=== PATIENT | female | born 1985 | race Hispanic/Latino ===

== ENCOUNTER 2020-02-01 21:40 | Emergency (ER) | payer SELFPAY ==
[2020-02-01 21:43] VITALS: BP 116/71; PULSE 75; RESP 16; TEMP 36.6; O2SAT 100
--- NOTE | 2020-02-01 22:15 | ED.EAR ---
HPI - Ear Problem General Chief complaint: Ear Stated complaint: right side face numbness, eye twitching Time Seen by Provider: 02/01/20 22:15 Source: patient and family Mode of arrival: ambulatory Limitations: no limitations History of Present Illness HPI Narrative: Patient is a 34-year-old female with a history of anemia who presents for evaluation of right ear pain that is causing some tingling on the right side of her face. Patient also reports she has had a sore throat and lymph node swollen on the right side of her neck. She denies difficulty with swallowing, but does report mild pain. She denies discharge from the ear. No recent swimming. No recent sick contacts. She denies fever, chest pain or shortness of breath. No vision changes or headache. Patient did take some ibuprofen for the ear pain which did improve her symptoms. Related Data Allergies Allergy/AdvReac Type Severity Reaction Status Date / Time Penicillins Allergy Mild Rash Verified 02/01/20 22:48 Review of Systems Review of Systems: Narrative: CONSTITUTIONAL: Denies fever, chills, or sweats. EYES: Denies visual changes, redness, or discharge. ENT: Denies rhinorrhea, congestion, reports sore throat and right ear pain CARDIOVASCULAR: Denies chest pain, palpitations, or edema. RESPIRATORY: Denies cough or dyspnea. GASTROINTESTINAL: Denies abdominal pain, nausea, vomiting, or diarrhea. GENITOURINARY: Denies dysuria or hematuria. SKIN: Denies rash or itching. MUSCULOSKELETAL: Denies back pain, joint pain, or myalgia. NEUROLOGIC: Denies headache, numbness, or weakness. Reports some tingling on the right side of her face. [facility] Past Medical History Medical History (Updated 02/01/20 @ 22:28 by Felicia Maldonado MD) Anemia Surgical History Surgical History (Updated 02/01/20 @ 22:24 by Felicia Maldonado MD) H/O section Social History Social History (Updated 02/01/20 @ 22:24 by Felicia Maldonado MD) Smoking status: Never smoker Substance use: never Living arrangements: with family Gender identity (if verbalized by the patient): Female Exam Narrative: Exam Narrative: GENERAL: Awake, alert, conversant HEAD: Normocephalic, atraumatic. EYES: PERRLA and EOMI. ENT: Nares clear, no rhinorrhea or epistaxis. Mucous membranes moist. Uvula is midline. Mild pharyngeal erythema. Tonsils are normal without exudate or petechiae. No trismus. Left tympanic membrane normal, intact light reflex, no bulging. Right tympanic membrane is bulging, serous fluid present, no perforation. Pain with retraction of the pinna. No mastoid tenderness or erythema. NECK: Supple. Mild cervical anterior lymphadenopathy on the right. CHEST: No respiratory distress, breathing even and non labored HEART: Regular rate, sinus rhythm ABDOMEN:Non distended, non tender EXTREMITIES: Normal range of motion. No edema. SKIN: Warm, dry, no rash. NEURO:No focal deficits. Alert and oriented x3. Finger to nose intact bilaterally. EOMs intact without nystagmus. No facial droop/asymmetry noted bilaterally. Grimace intact. Intact sensation in face. Hearing intact bilaterally. Shoulder shrug intact. Strength 5/5 bilateral upper extremities. Strength 5/5 bilateral lower extremities. Reflexes 2+ patellar. Heel to razo intact bilaterally. Ambulatorywith a narrow based steady gait. Course Vital Signs Vital signs: Vital Signs Temperature 36.6 C 02/01/20 21:43 Pulse Rate 75 02/01/20 21:43 Respiratory Rate 16 02/01/20 21:43 Blood Pressure 116/71 02/01/20 21:43 Pulse Oximetry 100 02/01/20 21:43 Temperature 36.6 C 02/01/20 21:43 Pulse Rate 75 02/01/20 21:43 Respiratory Rate 16 02/01/20 21:43 Blood Pressure 116/71 02/01/20 21:43 Pulse Oximetry 100 02/01/20 21:43 Medical Decision Making MDM Narrative Medical decision making narrative: Patient presented for evaluation of ear pain, swollen lymph nodes, sore throat, and some mild tingling and pain
[2020-02-01] MEDS: CEFDINIR 300 MG CAPSULE PO (22:48)
== END 2020-02-01 23:20 | disposition home or self-care (01) ==
LOC: ANHED 22:38
PROVIDERS: Emergency Provider Emergency Medicine
DX: H66.91 Otitis media, unspecified, right ear (principal); Z86.2 Personal history of diseases of the blood and blood-forming organs and certain disorders involving the immune mechanism
CPT/HCPCS: 99283; A9270

== ENCOUNTER 2020-10-27 22:47 | Emergency (ER) | payer MEDICAID, SELFPAY ==
--- NOTE | ~2020-10-27 | US_ITS ---
EXAMINATION: US OB <=14 wk fetus w TV DATE: 10/28/2020 01:37 INDICATION: Pelvic cramping during first trimester . TECHNIQUE: Real-time pelvic ultrasound utilizing both a transvaginal and transabdominal probe was pe rformed. The interpreting radiologist was not present for the study. COMPARISON: None. FINDINGS: The uterus measures 8.3 x 6.6 x 5.9 cm. There is an intrauterine gestational sac. A yolk sac is seen but no definite pole yet apparent likely due to early stage of . The mean sac diamete r measures 1.3 cm, which correlates with an estimated gestational age of 5 weeks and 6 days. 1.5 x 1. 3 x 0.9 cm hypoechoic subchorionic hematoma along the right side of the gestational sac. The right ovary measures 6.4 x 4.2 x 3.8 cm. And contains a 3.9 cm anechoic cyst/follicle with single thin internal septation. The left ovary measures 2.8 x 1.4 x 1.6 cm. Vascular flow identified in bot h ovaries on color Doppler. There is no free fluid in the pelvis. IMPRESSION: 1. Intrauterine gestational sac with single yolk sac but no pole yet apparent likely due to ear ly stage of . 2. Gestational age by ultrasound of 5 weeks 6 day(s) +/- 4 day(s) with ultrasound estimated date of delivery (KERRIE) of 06/24/2021. 2. Small subchorionic hematoma. Reviewed, dictated and finalized at location A. IMPRESSION: 1. Intrauterine gestational sac with single yolk sac but no pole yet appa rent likely due to early stage of . 2. Gestational age by ultrasound of 5 weeks 6 day(s) +/- 4 day(s) with ultraso und estimated date of delivery (KERRIE) of 06/24/2021. 2. Small subchorionic hematoma.
[2020-10-27 22:51] VITALS: BP 115/86; PULSE 73; RESP 18; TEMP 36.3; O2SAT 100
[2020-10-27 23:15] LABS: Basophils Absolute Auto 0.1 K/mm3 (0.0-0.1); Basophils Percent Auto 0.5 % (0.2-1.2); Eosinophils Absolute Auto 0.2 K/mm3 (0-0.3); Eosinophils Percent Auto 2.3 % (0-4.4); Hematocrit 36.9 % (37.0-47.0); Hemoglobin 12.4 g/dL (12.0-15.0); Immature Granulocyte Absolute 0.02 K/mm3 (0.00-0.031); Immature Granulocyte Percent A 0.2 % (0-0.5); Lymphocytes Absolute Auto 2.68 K/mm3 (0.9-3.2); Lymphocytes Percent Auto 28.9 % (18.3-44.2); Mean Corpuscular HGB Conc 33.6 g/dl (32-36); Mean Corpuscular Hemoglobin 30.8 pg (26-34); Mean Corpuscular Volume 91.8 fl (80-100); Mean Platelet Volume 9.4 fl (7.4-10.4); Monocytes Absolute Auto 0.6 K/mm3 (0.1-0.6); Monocytes Percent Auto 6.8 % (2.6-8.5); Neutrophils Absolute Auto 5.7 K/mm3 (1.3-6.7); Neutrophils Percent Auto 61.3 % (45.5-73.1); Platelet Count Result 310 k/mm3 (150-375); Red Blood Count 4.02 M/mm3 (4.2-5.4); Red Cell Distribution Width 12.7 % (11.5-14.5); White Blood Count 9.3 K/mm3 (4.5-10.0)
[2020-10-27 23:26] LABS: Alanine Aminotransferase 10 U/L (4-35); Albumin Level 4.3 g/dL (3.5-5.1); Alkaline Phosphatase 55 U/L (38-126); Anion Gap 4 mmol/L (8-16); Aspartate Amino Transferase 18 U/L (14-36); Bilirubin,Total 0.3 mg/dL (0.2-1.3); Blood Urea Nitrogen 8 mg/dL (7-17); Calcium 9.6 mg/dL (8.4-10.2); Carbon Dioxide 29 mmol/L (22-30); Chloride 104 mmol/L (98-107); Estimated CRCL calculation 83 ml/min; Estimated Glomerular Filt Rate > 60; Glucose 94 mg/dL (65-105); Lipase 89 U/L (23-300); Potassium 3.8 mmol/L (3.4-5.0); Sodium 137 mmol/L (137-145)
[2020-10-28 00:11] VITALS: BP 115/76; PULSE 76; RESP 14; O2SAT 100
[2020-10-28 00:36] LABS: Add Urine Microscopic? YES; Amorphous Sediment Urine Few; Appearance Urine Cloudy (Clear); Bilirubin Urine Negative (Negative); Blood Urine Negative (Negative); Color Urine Yellow (Yellow); Glucose Urine UA Negative (Negative); Ketones Urine Negative (Negative); Leukocyte Esterase Ur Trace LEU/UL (Negative); Mucus Urine Rare /lpf; Nitrate Urine Negative (Negative); Protein Urine 1+ mg/dL (Negative); RBC Urine 0-2 /hpf (0-2); Squamous Epithelial Cell Urine Many /hpf (Few); Urobilinogen Urine Negative mg/dL (<2.0)
--- NOTE | 2020-10-28 00:39 | ED.ABDPAIN ---
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 Reports the pain is in her lower abdomen/pelvis. She took a test today and it was positive. She has not had any care yet this . She does not have an ELECTRICIAN TELEPHONE. Denies fever, nausea, vomiting, vaginal bleeding, or dysuria. Related Data Allergies Allergy/AdvReac Type Severity Reaction Status Date / Time Penicillins Allergy Mild Rash Verified 02/01/20 22:48 Review of Systems Review of Systems: Narrative: CONSTITUTIONAL: Denies fever GASTROINTESTINAL: Reports abdominal pain. Denies nausea, vomiting GENITOURINARY: Denies dysuria All systems reviewed & are unremarkable except as noted in HPI and below PMFSH Past Medical History Medical History (Updated 10/28/20 @ 02:31 by Mora Singh PA-C) Anemia Surgical History Surgical History (Updated 02/01/20 @ 22:24 by Felicia Maldonado MD) H/O section Social History Social History (Updated 02/01/20 @ 22:24 by Felicia Maldonado MD) Smoking status: Never smoker Substance use: never Gender identity (if verbalized by the patient): Female Exam Narrative: Exam Narrative: GENERAL: Well-appearing, well-nourished, and in no acute distress. HEAD: Normocephalic, atraumatic. EYES: EOMI. CHEST: Clear to auscultation. No respiratory distress. No wheezes rales or rhonchi HEART: Regular rate and rhythm. No murmur heard. Normal peripheral pulses. ABDOMEN: Soft, nontender, nondistended, normal active bowel sounds. No CVA tenderness EXTREMITIES: Normal range of motion. No edema. SKIN: Warm, dry, no rash. NEURO: No focal deficits. Alert and oriented x3. PSYCH: Normal mood and affect Course Vital Signs Vital signs: Vital Signs Temperature 97.3 F L 10/27/20 22:51 Pulse Rate 73 10/27/20 22:51 Respiratory Rate 18 10/27/20 22:51 Blood Pressure 115/86 10/27/20 22:51 Pulse Oximetry 100 10/27/20 22:51 Temperature 97.3 F L 10/27/20 22:51 Pulse Rate 76 10/28/20 00:11 Respiratory Rate 14 10/28/20 00:11 Blood Pressure 115/76 10/28/20 00:11 Pulse Oximetry 100 10/28/20 00:11 MDM - Abdominal Pain MDM Narrative Medical decision making narrative: Patient presents the emergency department for abdominal discomfort with positive test today. She is afebrile and nontoxic-appearing. Vitals are stable. CBC and metabolic panel without concerning findings. Lipase is normal. UA without evidence of infection. Quantitative beta-hCG is 19,779. Obstetrics ultrasound shows a IUP with a yolk sac. pole not yet identified. Shows a septated/complex ovarian cyst without evidence of torsion. Patient was updated on case findings. Resting comfortably in bed. She denies any vaginal bleeding. She is stable and felt appropriate for further outpatient evaluation. Will be given OB for follow-up. She was given warnings to return to the ER Lab Data Attestation: I reviewed the patient's lab results. Result diagrams: 10/27/20 23:03 10/27/20 23:03 Labs: Lab Results 10/27/20 10/27/20 10/27/20 Range/Units 23:02 23:03 23:03 WBC 9.3 (4.5-10.0) K/mm3 RBC 4.02 L (4.2-5.4) M/mm3 Hgb 12.4 (12.0-15.0) g/dL Hct 36.9 L (37.0-47.0) % MCV 91.8 (80-100) fl MCH 30.8 (26-34) pg MCHC 33.6 (32-36) g/dl RDW 12.7 (11.5-14.5) % Plt Count 310 (150-375) k/mm3 MPV 9.4 (7.4-10.4) fl Immature Gran % (Auto) 0.2 (0-0.5) % Neut % (Auto) 61.3 (45.5-73.1) % Lymph % (Auto) 28.9 (18.3-44.2) % [place] % (Auto) 6.8 (2.6-8.5) % Eos % (Auto) 2.3 (0-4.4) % Baso % (Auto) 0.5 (0.2-1.
[2020-10-28 02:47] VITALS: BP 107/70; PULSE 69; RESP 14; O2SAT 100
== END 2020-10-28 02:47 | disposition home or self-care (01) ==
PROVIDERS: Physician Assistant; Emergency Provider Emergency Medicine
DX: R10.9 Unspecified abdominal pain (principal); O26.899 Other specified pregnancy related conditions, unspecified trimester
CPT/HCPCS: 36415; 76801; 76817; 80053; 81001; 81025; 83690; 84702; 85025; 99284

== ENCOUNTER 2020-11-30 15:53 | Outpatient (CLI) | payer MEDICAID, SELFPAY ==
--- NOTE | ~2020-11-30 | US_ITS ---
EXAMINATION: US OB <= 14 weeks fetus EXAM DATE: 11/30/2020 16:21 INDICATION: Encounter for screening of normal , dating. 1st trimester. TECHNIQUE: Pelvic obstetrical transabdominal sonogram was performed by a technologist. There are mu ltiple grayscale and Doppler images available for interpretation. Comparison is made to prior examina tion from 10/28/2020. FINDINGS: Uterus measures 9.3 x 8.1 x 7.9 cm. There is intrauterine gestation sac. pole with heart rate confirmed at 175 beats per minute. The 4 cm crown-rump length corresponds to estimated ge stational age by ultrasound of 10 weeks 6 days, estimated date of confinement 06/22/2021. Yolk sac is identified. There is no sonographic evidence of subchorionic hemorrhage. There is a 4 cm right ov junior cyst probably the corpus luteal cyst. Left ovary not identified. IMPRESSION: Live intrauterine gestation, age by ultrasound 10 weeks 6 days. Reviewed, dictated and finalized at location G.
== END 2020-11-30 15:54 | disposition home or self-care (01) ==
PROVIDERS: PCP Obstetrics & Gynecology; Visit Provider Obstetrics & Gynecology
DX: Z34.91 Encounter for supervision of normal pregnancy, unspecified, first trimester (principal); Z3A.10 10 weeks gestation of pregnancy
CPT/HCPCS: 76801

== ENCOUNTER 2021-01-11 19:56 | Emergency (ER) | payer OTHER, SELFPAY ==
--- NOTE | 2021-01-11 20:13 | ECG_ITS ---
Measurements Intervals [place] Rate: 71 P: 55 OR: 130 QRS: 61 QRSD: 82 T: 59 QT: 390 QTc: 425 Interpretive Statements SINUS RHYTHM NORMAL ECG Electronically Signed On 01-12-2021 8:56:28 CDT by Johnathon Barton D.O.
[2021-01-11 20:25] VITALS: BP 114/63; PULSE 72; RESP 20; TEMP 36.9; O2SAT 100
[2021-01-11 20:31] LABS: Basophils Absolute Auto 0.1 K/mm3 (0.0-0.1); Basophils Percent Auto 0.5 % (0.2-1.2); Eosinophils Absolute Auto 0.2 K/mm3 (0-0.3); Eosinophils Percent Auto 1.7 % (0-4.4); Hematocrit 33.1 % (37.0-47.0); Hemoglobin 11.4 g/dL (12.0-15.0); Immature Granulocyte Absolute 0.04 K/mm3 (0.00-0.031); Immature Granulocyte Percent A 0.3 % (0-0.5); Lymphocytes Percent Auto 26.7 % (18.3-44.2); Mean Corpuscular HGB Conc 34.4 g/dl (32-36); Mean Corpuscular Hemoglobin 31.4 pg (26-34); Mean Corpuscular Volume 91.2 fl (80-100); Mean Platelet Volume 9.7 fl (7.4-10.4); Monocytes Absolute Auto 0.6 K/mm3 (0.1-0.6); Monocytes Percent Auto 4.9 % (2.6-8.5); Neutrophils Absolute Auto 8.2 K/mm3 (1.3-6.7); Neutrophils Percent Auto 65.9 % (45.5-73.1); Platelet Count Result 312 k/mm3 (150-375); Red Blood Count 3.63 M/mm3 (4.2-5.4); Red Cell Distribution Width 13.4 % (11.5-14.5); White Blood Count 12.4 K/mm3 (4.5-10.0)
[2021-01-11 20:58] LABS: Anion Gap 6 mmol/L (8-16); Blood Urea Nitrogen 5 mg/dL (7-17); Calcium 8.9 mg/dL (8.4-10.2); Carbon Dioxide 22 mmol/L (22-30); Chloride 107 mmol/L (98-107); Estimated CRCL calculation 96 ml/min; Estimated Glomerular Filt Rate > 60; Glucose 78 mg/dL (65-110); Potassium 3.8 mmol/L (3.4-5.0); Sodium 135 mmol/L (137-145)
--- NOTE | 2021-01-12 00:38 | ED.DIZZY ---
HPI - Dizziness General Chief Complaint: Dizziness Stated Complaint: chest pain Time Seen by Provider: 01/12/21 00:25 History of Present Illness HPI Narrative: female at approximately 4 months gestation presents to the ED for dizziness. She has been intermittenlty light headed for the past few days. Worse upon standing. This is associated with with moderate headache and occasional chest discomfort. No abdominal pain, vomiting, vaginal bleeding, discharge, dysuria. Related Data Allergies Allergy/AdvReac Type Severity Reaction Status Date / Time Penicillins Allergy Mild Rash Verified 01/12/21 01:19 Review of Systems Review of Systems: All systems reviewed & are unremarkable except as noted in HPI and below PMFSH Past Medical History Medical History (Updated 01/13/21 @ 00:00 by Bryanna Mayes) Anemia Surgical History Surgical History (Updated 02/01/20 @ 22:24 by Felicia Maldonado MD) H/O section Social History Social History (Updated 02/01/20 @ 22:24 by Felicia Maldonado MD) Smoking status: Never smoker Substance use: never Gender identity (if verbalized by the patient): Female Exam Const: General: healthy appearing, no acute distress and alert Orientation/consciousness: patient oriented x3 HENMT: Head: normal to inspection Ears: TM's normal bilaterally Face and sinus: normal facial exam Eyes: Pupils: Equal, round and reactive pupils present EOM: EOMs intact bilaterally Neck: Neck: normal visual inspection Resp: Effort & Inspection: normal respiratory effort Auscultation: clear to auscultation bilaterally, no rales, no rhonchi and no wheezes Cardio: Jugular venous distension: no JVD Rate: regular rate Rhythm: regular rhythm Heart sounds: no murmurs GI: Inspection: non-distended GI Palp: Yes Soft to palpation and No Tenderness to palpation present (GI) Skin: General skin exam: normal color Neuro: General: patient oriented x3 and moves all extremities Speech: normal speech Extrem: General: no edema Psych: Appearance: well kempt Affect: normal affect Course Vital Signs Vital signs: Vital Signs Temperature 36.9 C 01/11/21 20:25 Pulse Rate 72 01/11/21 20:25 Respiratory Rate 20 01/11/21 20:25 Blood Pressure 114/63 01/11/21 20:25 Pulse Oximetry 100 01/11/21 20:25 Temperature 36.2 C L 01/12/21 00:51 Pulse Rate 85 01/12/21 02:58 Respiratory Rate 12 01/12/21 02:58 Blood Pressure 101/67 01/12/21 02:58 Pulse Oximetry 100 01/12/21 02:58 MDM - Dizziness Differential Diagnosis Differential diagnosis: Likely benign paroxysmal positional vertigo, orthostatic hypotension and other (tension VAL[place]INO, migraine, preeclampsia) Medical Records Attestation: I reviewed the patient's medical records. Lab Data Attestation: I reviewed the patient's lab results. Result diagrams: 01/11/21 20:21 01/11/21 20:21 Labs: Lab Results 01/11/21 01/11/21 Range/Units 20:21 20:21 WBC 12.4 H (4.5-10.0) K/mm3 RBC 3.63 L (4.2-5.4) M/mm3 Hgb 11.4 L (12.0-15.0) g/dL Hct 33.1 L (37.0-47.0) % MCV 91.2 (80-100) fl MCH 31.4 (26-34) pg MCHC 34.4 (32-36) g/dl RDW 13.4 (11.5-14.5) % Plt Count 312 (150-375) k/mm3 MPV 9.7 (7.4-10.4) fl Immature Gran % (Auto) 0.3 (0-0.5) % Neut % (Auto) 65.9 (45.5-73.1) % Lymph % (Auto) 26.7 (18.3-44.2) % [place] % (Auto) 4.9 (2.6-8.5) % Eos % (Auto) 1.7 (0-4.4) % Baso % (Auto) 0.5 (0.2-1.2) % Lymph # (Auto) 3.30 H (0.9-3.2) K/mm3 [place] # (Auto) 0.6 (0.1-0.6) K/mm3 Eos # (Auto) 0.2 (0-0.3) K/mm3 Baso # (Auto) 0.1 (0.0-0.1) K/mm3 Abs Immat Gran (auto) 0.04 H (0.00-0.031) K/mm3 Absolute Neuts (auto) 8.2 H (1.3-6.7) K/mm3 Absolute Nucleated RBC 0.0 (0.0-0.012) K/mm3 Nucleated RBC % 0.0 (0.0-0.2) % Sodium 135 L (137-145) mmol/L Potassium 3.8 (3.4-5.0) mmol/L Chloride 107 (98-107) mmol/L Carbon D
[2021-01-12 00:51] VITALS: BP 100/66; PULSE 65; RESP 9; TEMP 36.2; O2SAT 100
[2021-01-12] MEDS: SODIUM CHLORIDE 0.9% IV 1,000 ML 999 ML IV CONT (01:30)
[2021-01-12] MEDS: METOCLOPRAMIDE HCL INJ 10 MG/2 ML VIAL IV PUSH (01:31)
[2021-01-12] MEDS: diphenhydrAMINE HCl INJ 50 MG/ML VIAL 25 MG IV PUSH (01:31)
[2021-01-12 01:36] VITALS: BP 99/67; PULSE 67; RESP 15; O2SAT 100
[2021-01-12 02:35] VITALS: BP 101/67; PULSE 62; RESP 14; O2SAT 100
[2021-01-12 02:58] VITALS: BP 101/67; PULSE 85; RESP 12; O2SAT 100
== END 2021-01-12 03:01 | disposition home or self-care (01) ==
PROVIDERS: Emergency Medicine; Emergency Provider Emergency Medicine; PCP Obstetrics & Gynecology
DX: O26.899 Other specified pregnancy related conditions, unspecified trimester (principal); R42 Dizziness and giddiness; O99.019 Anemia complicating pregnancy, unspecified trimester; Z3A.00 Weeks of gestation of pregnancy not specified; D64.9 Anemia, unspecified
CPT/HCPCS: 36415; 80048; 85025; 93005; 96361; 96374; 96375; 99284; J1200; J2765; J7030

== ENCOUNTER 2021-02-03 14:14 | Outpatient (CLI) | payer OTHER, SELFPAY ==
--- NOTE | ~2021-02-03 | US_ITS ---
US OB /maternal detail DATE: 02/03/2021 15:19 INDICATION: anatomy screen TECHNIQUE: Real-time imaging and Doppler analysis COMPARISON: 12/01/2019 obstetrical ultrasound FINDINGS: Live anglin intrauterine gestation, fetus in longitudinal lie, vertex presentation. Posterior placenta, lower margin of placenta 7.9 cm above the internal os. Subjectively normal amount of amniotic fluid. No cerebral ventriculomegaly. cerebellum, cisterna magna and nuchal fold appear normal. T he spine appears normal on transverse and longitudinal imaging. The diaphragm is intact. 4 chamber heart with normal outflow tracts. kidneys are unremarkable, without hydronephro sis. Fluid is demonstrated in the stomach and urinary bladder. female external essie shoshana. Three-vessel umbilical cord with normal insertion at abdominal wall. extremities are unremarkable. Biparietal diameter 4.53 cm; 19 weeks 5 days Head circumference 16.95 cm; 19 weeks 4 days Abdominal circumference 14.50 cm; 19 weeks 6 days Femur length 3.13 cm; 19 weeks 5 days Composite age by Hadlock bilateral is 19 weeks 5 days +/- 1 week 3 days; KERRIE: 06/25/2021 Estimated weight is 311.1 +/- 46.7 g. Estimated weight-GP: 39.5% Head circumference/abdominal circumference: 1.17, within normal range of 1.08-1.26 Femur length/head circumference: 18.50, within normal range of 16.60-19.37. IMPRESSION: Composite age by Hadlock bilateral is 19 weeks 5 days +/- 1 week 3 days; KERRIE: 06/25/2021 Normal anatomy screen Reviewed, dictated and finalized at Location [facility]. Reviewed, dictated and finalized at location A.
== END 2021-02-03 14:15 | disposition home or self-care (01) ==
PROVIDERS: PCP Obstetrics & Gynecology; Visit Provider Obstetrics & Gynecology
DX: Z36.9 Encounter for antenatal screening, unspecified (principal); Z3A.19 19 weeks gestation of pregnancy
CPT/HCPCS: 76805

== ENCOUNTER 2021-03-10 10:21 | Outpatient (CLI) | payer OTHER, SELFPAY ==
--- NOTE | ~2021-03-10 | US_ITS ---
EXAMINATION: US OB follow up DATE: 03/10/2021 11:01 INDICATION: Routine care TECHNIQUE: Real-time ultrasound of the pelvis was performed. The interpreting radiologist was not pre sent for the study. COMPARISON: None. FINDINGS: There is a single living fetus in vertex presentation. The placenta is right posterior. heart rate is 132 beats per minute (bpm). The amniotic fluid index is 20.1 cm, which is normal (5th%-95%: 9.7-22.1 cm at 25 weeks estimated gestational age). The following biometric data were obtained: BPD: 6.0 cm -> 24 weeks 4 days Head circumference: 22.6 cm -> 24 weeks 4 days Abdominal circumference: 20.6 cm -> 25 weeks 1 days Femur length: 4.5 cm -> 24 weeks 6 days These measurements are concordant. Head circumference to abdominal circumference ratio: 1.10 (normal range 1.04-1.22). Estimated weight: 754 g (+/-) 113 g or 1 lbs. 11 oz. (+/-) 4 oz. IMPRESSION: 1. Single living fetus in vertex presentation with heart rate of 132 bpm. 2. Normal amniotic fluid index of 20.1 cm. 3. Estimated weight is 45th percentile by Hadlock criteria when 06/24/2021 is used as the estimat ed date of delivery (KERRIE). Please correlate with clinical information or earlier ultrasounds for most accurate KERRIE. Reviewed, dictated and finalized at location A. IMPRESSION: 1. Single living fetus in vertex presentation with heart rate of 132 bpm. 2. Normal amniotic fluid index of 20.1 cm. 3. Estimated weight is 45th percentile by Hadlock criteria when 06/24/2021 is used as the estimated date of delivery (KERRIE). Please correlate with clinical information or earlier ultrasounds for most accurate KERRIE.
== END 2021-03-10 10:22 | disposition home or self-care (01) ==
PROVIDERS: PCP Obstetrics & Gynecology; Visit Provider Obstetrics & Gynecology
DX: Z34.90 Encounter for supervision of normal pregnancy, unspecified, unspecified trimester (principal); Z3A.00 Weeks of gestation of pregnancy not specified
CPT/HCPCS: 76816

== ENCOUNTER 2021-04-12 09:32 | Outpatient (CLI) | payer OTHER, SELFPAY ==
--- NOTE | ~2021-04-12 | US_ITS ---
EXAMINATION: US OB follow up DATE: 04/12/2021 09:57 INDICATION: growth assessment during second trimester TECHNIQUE: Real-time ultrasound of the pelvis was performed. The interpreting radiologist was not pre sent for the study. COMPARISON: 03/10/2021 FINDINGS: There is a single living fetus in vertex presentation. The placenta is posterior/fundal. Fe ruel cardiac activity and movement are noted. heart rate is 137 beats per minute (bpm). Th e amniotic fluid index is 13.4 cm which is normal. The following biometric data were obtained: Biparietal diameter (BPD): 7.2 cm; head circumference (HC): 27.8 cm; abdominal circumference (AC): 27 .7 cm; femur length (FL): 5.7 cm. These measurements are concordant. Estimated weight is 1678 g +/- 251 g, which correlates with the 85th percentile when 06/24/2021 i s used as estimated date of delivery. As single measurements, these parameters are each equal to the following estimated gestational ages w ith ranges of +/- 2 standard deviations: BPD: 29 weeks 1 days ( 27 weeks 0 days - 31 weeks 2 days). HC: 30 weeks 3 days ( 27 weeks 4 days - 33 weeks 3 days). AC: 31 weeks 6 days ( 28 weeks 6 days - 34 weeks 5 days). FL: 30 weeks 2 days ( 28 weeks 1 days - 32 weeks 3 days). estimated gestational age based solely on measurements from this exam is 30 weeks 3 days +/- 2 weeks 1 days. IMPRESSION: 1. Single living fetus in vertex presentation. 2. Estimated weight is 1678 g +/- 251 g, which correlates with the 85th percentile when 2 is used as estimated date of delivery. Reviewed, dictated and finalized at location A. IMPRESSION: 1. Single living fetus in vertex presentation. 2. Estimated weight is 1678 g +/- 251 g, which correlates with the 85th p ercentile when 06/24/2021 is used as estimated date of delivery.
== END 2021-04-12 09:33 | disposition home or self-care (01) ==
LOC: ANHIMG 09:33
PROVIDERS: PCP Obstetrics & Gynecology; Visit Provider Obstetrics & Gynecology
DX: Z34.83 Encounter for supervision of other normal pregnancy, third trimester (principal); Z3A.30 30 weeks gestation of pregnancy
CPT/HCPCS: 76816

== ENCOUNTER 2022-09-26 18:34 | Emergency (ER) | payer OTHER, SELFPAY ==
[2022-09-26 18:42] VITALS: BP 104/68; PULSE 73; RESP 16; TEMP 37.3; O2SAT 99
--- NOTE | 2022-09-26 19:18 | ED.GENADULT ---
HPI - General Adult General Chief complaint: Eye Problems Stated complaint: Both Eyes Irritation Source: patient Mode of arrival: ambulatory Limitations: language barrier ( utilized financial services counselor services) History of Present Illness HPI narrative: Patient presents for evaluation of redness and itching to bilateral eyes for the last 4 days. She reports tearing from both eyes. She had some blurred vision as result of tearing last night. Denies visual disturbance otherwise. Reports some irritation in her nose and throat, But denies sore throat per se. No fever, chills, nausea, vomiting, cough, SOB. She does not smoke. She does not wear glasses or contacts. Related Data Allergies Allergy/AdvReac Type Severity Reaction Status Date / Time Penicillins Allergy Mild Rash Verified 09/26/22 18:55 Review of Systems Review of Systems: CONSTITUTIONAL: Denies fever, chills, or sweats. EYES: Reports redness and itching to both eyes. Reports tearing and blurred vision yesterday which has improved ENT: Denies rhinorrhea, congestion, sore throat, or otalgia. CARDIOVASCULAR: Denies chest pain, palpitations, or edema. RESPIRATORY: Denies cough or dyspnea. GASTROINTESTINAL: Denies abdominal pain, nausea, vomiting, or diarrhea. GENITOURINARY: Denies dysuria or hematuria. SKIN: Denies rash or itching. MUSCULOSKELETAL: Denies back pain, joint pain, or myalgia. NEUROLOGIC: Denies headache, numbness, dizziness, or weakness. PSYCHIATRIC: Denies anxiety or depression. [facility] Past Medical History Medical History Anemia Surgical History Surgical History H/O section Family History Family History Mother Family history non-contributory Social History Social History Smoking status: Never smoker Substance use: never Living arrangements: with family Gender identity (if verbalized by the patient): Female Sexual Orientation (if Verbalized by the Patient): Straight or Heterosexual Spiritual care concerns: No Exam Narrative: GENERAL: Well-appearing, well-nourished, and in no acute distress. HEAD: Normocephalic, atraumatic. EYES: Bilateral conjunctival injection with tearing noted. PERRLA and EOMI. ENT: Nares clear, no rhinorrhea or epistaxis. Mucous membranes moist. Oropharynx without tonsillar hypertrophy exudate or other lesions. Bilateral TMs pearly [place] nonbulging NECK: Supple. No adenopathy or masses. No carotid bruits or JVD CHEST: Clear to auscultation. No respiratory distress. No wheezes rales or rhonchi HEART: Regular rate and rhythm. No murmur heard. Normal peripheral pulses. ABDOMEN: Soft, nontender, nondistended, normal active bowel sounds. EXTREMITIES: Normal range of motion. No edema. SKIN: Warm, dry, no rash. NEURO: No focal deficits. Alert and oriented x3. PSYCH: Normal mood and affect. Course Course Emergency Course: this is a 37-year-old female who presented for evaluation of itching and tearing from eyes. Exam is consistent with allergic conjunctivitis. Start claritin. Will also provide her with a prescription for erythromycin in event she does develop a corneal abrasion from rubbing her eyes. Follow-up with primary provider go to the ER for any visual disturbance. Patient in agreement with plan of care. Level of Care: Express Care Visit Vital Signs Vital signs: Vital Signs Temperature 37.3 C 09/26/22 18:42 Pulse Rate 73 09/26/22 18:42 Respiratory Rate 16 09/26/22 18:42 Blood Pressure 104/68 09/26/22 18:42 Pulse Oximetry 99 09/26/22 18:42 Oxygen Delivery Room Air 09/26/22 18:42 Temperature 37.3 C 09/26/22 18:42 Pulse Rate 73 09/26/22 18:42 Respiratory Rate 16 09/26/22 18:42 Blood Pressure 104/68 09/26/22 18:42 Pulse
== END 2022-09-26 19:20 | disposition home or self-care (01) ==
PROVIDERS: Emergency Provider Nurse Practitioner; PCP Obstetrics & Gynecology
DX: H10.9 Unspecified conjunctivitis (principal); T78.40XA Allergy, unspecified, initial encounter
CPT/HCPCS: 99213; G0463